=== PATIENT | male | born 1970 | race Caucasian/White ===

== ENCOUNTER 2017-01-23 13:39 | Emergency (ER) | payer SELFPAY ==
[2017-01-23 16:09] LABS: BASOPHIL % 0.3 % (0-2); PLATELET COUNT 220 x10^3mcL (130-400); RED CELL DISTRIBUTION WIDTH 14.3 % (11.5-14.5)
[2017-01-23 16:21] LABS: ALBUMIN 3.6 g/dL (3.4-5.0); ALKALINE PHOSPHATASE 76 U/L (46-116); ALT/SGPT 19 U/L (16-63); AMYLASE 29 U/L (25-115); AST/SGOT 16 U/L (15-37); BILIRUBIN TOTAL 0.5 mg/dL (0.20-1.00); CALCIUM 8.4 mg/dL (8.5-10.1); CARBON DIOXIDE 25.8 mmol/L (21-32); CHLORIDE SERUM 102 mmol/L (98-107); CHOLESTEROL 144 mg/dL (<200); GFR1 > 60 mL/min; GLUCOSE SERUM 113 mg/dL (74-106); HDL CHOLESTEROL 59 mg/dL (40-60); LIPASE 90 IU/L (73-393); POTASSIUM SERUM 3.5 mmol/L (3.5-5.1); SODIUM SERUM 135 mmol/L (136-145); T4(THYROXINE) 8.4 ug/dL (4.7-13.3); TOTAL PROTEIN, SERUM 6.9 g/dL (6.4-8.2)
[2017-01-23 16:54] LABS: microscopic required? NO
[2017-01-23 16:59] LABS: UA SPECIFIC GRAVITY 1.025 (1.005-1.035); urine erythrocyte NEGATIVE (NEGATIVE)
[2017-01-23 17:08] LABS: AMPHETAMINE QUAL UR POSITIVE (NEG <=1000)
[2017-01-23 19:43] VITALS: BP 127/80
== END 2017-01-23 19:43 | disposition home or self-care (01) ==
LOC: ED 13:39
PROVIDERS: Emergency Medicine
DX: S43.005A Unspecified dislocation of left shoulder joint, initial encounter (principal); W17.89XA Other fall from one level to another, initial encounter; F17.210 Nicotine dependence, cigarettes, uncomplicated; E66.01 Morbid (severe) obesity due to excess calories; I10 Essential (primary) hypertension; Z71.6 Tobacco abuse counseling; J45.909 Unspecified asthma, uncomplicated; Y93.89 Activity, other specified; Y99.8 Other external cause status; Y92.89 Other specified places as the place of occurrence of the external cause
CPT/HCPCS: 83880; 99406; G0480; J1940; J3010; J3490; J7050; Q0092

== ENCOUNTER 2018-06-19 09:19 | Emergency (ER) | payer OTHER ==
[~2018-06-19] VITALS: Ht 167.6 cm; Wt 112.9 kg
[2018-06-19 09:25] VITALS: Ht 167.6 cm; Wt 112.9 kg
[2018-06-19 11:39] VITALS: BP 158/103
== END 2018-06-19 11:50 | disposition home or self-care (01) ==
LOC: ED 09:19
DX: S39.012A Strain of muscle, fascia and tendon of lower back, initial encounter (principal); S46.911A Strain of unspecified muscle, fascia and tendon at shoulder and upper arm level, right arm, initial encounter; S99.921A Unspecified injury of right foot, initial encounter; I10 Essential (primary) hypertension; Z90.89 Acquired absence of other organs; W10.8XXA Fall (on) (from) other stairs and steps, initial encounter; Y93.89 Activity, other specified; Y92.89 Other specified places as the place of occurrence of the external cause; Y99.8 Other external cause status
CPT/HCPCS: J1885

== ENCOUNTER 2018-10-27 16:12 | Emergency (ER) | payer OTHER ==
[~2018-10-27] VITALS: Ht 170.2 cm; Wt 111.1 kg
[2018-10-27 16:19] VITALS: Ht 170.2 cm; Wt 111.1 kg
[2018-10-27 17:23] LABS: BASOPHIL % 0.3 % (0-2); CALCIUM 8.9 mg/dL (8.5-10.1); CARBON DIOXIDE 31.3 mmol/L (21-32); CHLORIDE SERUM 104 mmol/L (98-107); CREATININE SERUM 0.9 mg/dL (0.7-1.3); GFR1 > 60 mL/min; GLUCOSE SERUM 77 mg/dL (74-106); PLATELET COUNT 234 x10^3mcL (130-400); POTASSIUM SERUM 4.3 mmol/L (3.5-5.1); RED CELL DISTRIBUTION WIDTH 13.9 % (11.5-14.5); SODIUM SERUM 142 mmol/L (136-145)
[2018-10-27 17:32] LABS: ALBUMIN 3.4 g/dL (3.4-5.0); ALKALINE PHOSPHATASE 73 U/L (46-116); ALT/SGPT 34 U/L (16-63); AST/SGOT 19 U/L (15-37); BILIRUBIN TOTAL 0.18 mg/dL (0.20-1.00); TOTAL PROTEIN, SERUM 7.2 g/dL (6.4-8.2)
[2018-10-27 18:03] VITALS: BP 167/68
== END 2018-10-27 18:03 | disposition home or self-care (01) ==
LOC: ED 16:12
PROVIDERS: Emergency Medicine
DX: R07.89 Other chest pain (principal); R42 Dizziness and giddiness; R53.1 Weakness; F17.210 Nicotine dependence, cigarettes, uncomplicated; J45.909 Unspecified asthma, uncomplicated; I10 Essential (primary) hypertension; Z90.89 Acquired absence of other organs
CPT/HCPCS: 36415; Q0092

== ENCOUNTER 2018-11-21 14:41 | Emergency (ER) | payer OTHER ==
[~2018-11-21] VITALS: Ht 170.2 cm; Wt 112.9 kg
[2018-11-21 14:59] VITALS: Ht 170.2 cm; Wt 112.9 kg
[2018-11-21 16:37] LABS: BASOPHIL % 0.4 % (0-2); PLATELET COUNT 270 x10^3mcL (130-400); RED CELL DISTRIBUTION WIDTH 14.7 % (11.5-14.5)
[2018-11-21 16:48] LABS: CALCIUM 9.1 mg/dL (8.5-10.1); CARBON DIOXIDE 30.8 mmol/L (21-32); CHLORIDE SERUM 105 mmol/L (98-107); GFR1 > 60 mL/min; GLUCOSE SERUM 88 mg/dL (74-106); POTASSIUM SERUM 4.1 mmol/L (3.5-5.1); SODIUM SERUM 142 mmol/L (136-145)
[2018-11-21 16:52] LABS: ALBUMIN 3.6 g/dL (3.4-5.0); ALKALINE PHOSPHATASE 76 U/L (46-116); ALT/SGPT 29 U/L (16-63); AST/SGOT 19 U/L (15-37); BILIRUBIN TOTAL 0.3 mg/dL (0.20-1.00); TOTAL PROTEIN, SERUM 7.8 g/dL (6.4-8.2)
[2018-11-21 18:10] VITALS: BP 135/87
== END 2018-11-21 18:10 | disposition home or self-care (01) ==
LOC: ED 14:41
PROVIDERS: Emergency Medicine
DX: S97.101A Crushing injury of unspecified right toe(s), initial encounter (principal); R07.89 Other chest pain; R06.00 Dyspnea, unspecified; X58.XXXA Exposure to other specified factors, initial encounter; Y93.89 Activity, other specified; Y92.89 Other specified places as the place of occurrence of the external cause; Y99.8 Other external cause status
CPT/HCPCS: 36415; 83880; 85378; Q0092

== ENCOUNTER 2019-04-12 16:40 | Inpatient (IN) | payer OTHER ==
[~2019-04-12] VITALS: Ht 170.2 cm; Wt 116.1 kg
[2019-04-12 16:47] VITALS: Ht 170.2 cm; Wt 116.1 kg
[2019-04-12 17:32] LABS: BASOPHIL % 0.4 % (0-2); PLATELET COUNT 276 x10^3mcL (130-400); RED CELL DISTRIBUTION WIDTH 14.5 % (11.5-14.5)
--- NOTE | 2019-04-12 17:32 | NUR ---
PT WAS DROPPED OFF TODAY FOR CHEST PAIN SINCE YESTERDAY THAT IS INCREASING GETTING WORSE. PT REPORTING LEFT ARM NUMBNESS AFTER WAKING FROM A NAP YESTERDAY THEN CHEST PAIN ACCROSS THE CHEST STARTED AND PAIN INCREASES WITH INSPIRATION AND MOVEMENT PER PATIENT. PT IS ALERT AND ORIENTED, BREATHING IS UNLABORED AND EVEN AND PT ON FULL CM.
--- NOTE | 2019-04-12 17:34 | NUR ---
PT REPORTING NON-COMPLAINT WITH HTN MEDICATION
[2019-04-12 17:41] LABS: CALCIUM 8.5 mg/dL (8.5-10.1); CARBON DIOXIDE 28.2 mmol/L (21-32); CHLORIDE SERUM 105 mmol/L (98-107); CREATININE SERUM 0.8 mg/dL (0.7-1.3); GFR1 > 60 mL/min; GLUCOSE SERUM 105 mg/dL (74-106); SODIUM SERUM 141 mmol/L (136-145)
--- NOTE | 2019-04-12 17:42 | NUR ---
I EXPLAINED TO PT REGARDING THE NITRO S/L AND TOPICAL I DISCUSSED S/E PT IS CM I WILL MONITOR FOR CP EFFECTIVENESS AFTER GIVING THE NITRO S/L SEE EMAR VITALS FOR VITALS BEFORE DURING AND AFTER THE NITRO.
--- NOTE | 2019-04-12 17:45 | NUR ---
PT A/AX4 SPEAKING IN CLEAR SENTENCES. PT IS SPEAKING IN CLEAR SENTENCES.
--- NOTE | 2019-04-12 17:47 | NUR ---
PT STILL C/O TIGHTNESS B/P AFTER THE SECOND NITRO 0.4 MG S/L IS 137/89 P63 98 SATS WITH O2 2L N/C
[2019-04-12 17:49] LABS: ALBUMIN 3.4 g/dL (3.4-5.0); ALKALINE PHOSPHATASE 84 U/L (46-116); ALT/SGPT 27 U/L (16-63); AST/SGOT 13 U/L (15-37); BILIRUBIN TOTAL 0.2 mg/dL (0.20-1.00); TOTAL PROTEIN, SERUM 7.5 g/dL (6.4-8.2)
[2019-04-12 19:26] LABS: CHOLESTEROL/HDL RATIO 3.4; MAGNESIUM 2.1 mg/dL (1.8-2.4); PHOSPHOROUS 4.1 mg/dL (2.5-4.9)
--- NOTE | 2019-04-12 19:35 | NUR ---
CALLED AND GAVE REPORT TO JF RN, ALL QUESTIONS ADDRESSED AT THIS TIME
[2019-04-12 19:37] LABS: FREE T4 0.94 ng/dL (0.76-1.46); FREE THYROXINE INDEX 3.1 ug/dL (1.4-4.5); T4(THYROXINE) 9.9 ug/dL (4.7-13.3)
[2019-04-12 19:39] LABS: T3 TOTAL 1.01 ng/mL
[2019-04-12 20:13] VITALS: BP 148/99
--- NOTE | 2019-04-12 20:50 | NUR ---
RECIEVED PT IN NO ACUTE DISTRESS. AOX4. TELE #9, SR. BREATHING E/U. C/O CHEST PAIN 02/08, WILL MEDICATE PER EMAR. IV TO LAC. ORIENTED TO ROOM. BED IN LOWEST POSITION, 2 SIDE RAILS UP, CALL LIGHT IN REACH.
[2019-04-13 02:03] LABS: UA SPECIFIC GRAVITY 1.025 (1.005-1.035); microscopic required? YES; urine erythrocyte 3+ (NEGATIVE)
--- NOTE | 2019-04-13 02:07 | NUR ---
RESTING WITH EYES CLOSED. BREATHING E/U. NO ACUTE DISTRESS NOTED. WILL CONTINUE TO MONITOR.
[2019-04-13 02:16] LABS: AMPHETAMINE QUAL UR NONE DETECTED (See below)
[2019-04-13 05:40] VITALS: BP 164/98
--- NOTE | 2019-04-13 06:12 | NUR ---
PT C/O HEARTBURN. MEDICATED WITH ONE TIME PRILOSEC. NO C/O CHEST PAIN AT THIS TIME. NO ACUTE DISTRESS NOTED. WILL ENDORSE TO ONCOMING RN.
[2019-04-13 06:53] LABS: PLATELET COUNT 269 x10^3mcL (130-400)
--- NOTE | 2019-04-13 07:12 | NUR ---
REPORT TAKEN AT THE BEDSIDE, PT AWAKE AND ALERT, WILL CONTINUE TO MONITOR
[2019-04-13 07:26] LABS: CALCIUM 8.7 mg/dL (8.5-10.1); CARBON DIOXIDE 25.2 mmol/L (21-32); CHLORIDE SERUM 101 mmol/L (98-107); CREATININE SERUM 0.9 mg/dL (0.7-1.3); GFR1 > 60 mL/min; GLUCOSE SERUM 166 mg/dL (74-106); POTASSIUM SERUM 4.6 mmol/L (3.5-5.1); SODIUM SERUM 136 mmol/L (136-145)
[2019-04-13 07:31] VITALS: BP 144/94
[2019-04-13 07:36] LABS: BASOPHIL % 0 % (0-2); RED CELL DISTRIBUTION WIDTH 14.7 % (11.5-14.5)
--- NOTE | 2019-04-13 10:33 | NUR ---
PATIENT REPORTS HEADACHE PAIN AT THIS TIME, DENIED N/V, GIVEN TYLENOL PER PRN ORDER WILL CONTINUE TO MONITOR.
[2019-04-13 11:56] VITALS: BP 152/92
--- NOTE | 2019-04-13 14:10 | NUR ---
I WOKE PATIENT TO GIVE 1400 DOSE OF LEVAQUIN PO. PT REPORTED HEADACHE AT THIS TIME, 8 OF 10 PAIN. PAIN HAS BEEN CONSTANT AND NOT HELPED BY PRIOR MEDICATIONS PER PT'S REPORT. PT DENIED DIZZINESS OR N/V AT THIS TIME, ALSO DENIED WEAKNESS OR NUMBNESS IN ARMS OR LEGS. I PAGED DR. CONTEH AND SPOKE TO HIM ON THE PHONE. HE REPORTED HE WILL UPDATE eMAR AND VISIT THE PATIENT THIS AFTERNOON. WILL CONTINUE TO MONITOR.
[2019-04-13 15:48] VITALS: BP 142/71
--- NOTE | 2019-04-13 19:17 | NUR ---
PATIENT TOLERATED TREATMENT WELL DURING THE SHIFT, REPORTED HEADACHE DURING THE SHIFT, MEDICATED PER PRN ORDERS, CONSULTED WITH DR. CONTEH ABOUT HEADACHE REPORTS, HE VISITED THE PATIENT IN THE AFTERNOON TO ASSESS. PATIENT STILL REPORTS MILD HEADACHE AND NAUSEA. DECLINED ZOFRAN MEDICATION HE FEELS THE PAIN MEDICATIONS MADE HIM SICK. GIVEN TUMS PER PRN ORDER. REPORT GIVEN TO ENROLLMENT COUNSELOR NURSE AT THE BEDSIDE, CARE ENDORSED
--- NOTE | 2019-04-13 19:25 | NUR ---
RECIEVED PT IN NO ACUTE DISTRESS. AOX4. MED SURG. DENIES CP AT THIS TIME. C/O HUBBARD, WILL MEDICATE PER EMAR. LUNG SOUNDS WITH MILD WHEEZE BILAT. BREATHING E/U. IV TO LAC. BED IN LOWEST POSITION, 2 SIDE RAILS UP, CALL LIGHT IN REACH.
[2019-04-13 20:14] VITALS: BP 153/83
--- NOTE | 2019-04-14 02:11 | NUR ---
RESTING WITH EYES CLOSED. BREATHING E/U. NO ACUTE DISTRESS NOTED. WILL CONTINUE TO MONITOR.
[2019-04-14 04:52] VITALS: BP 131/83
[2019-04-14 06:16] LABS: PLATELET COUNT 247 x10^3mcL (130-400)
[2019-04-14 06:23] LABS: CALCIUM 8.2 mg/dL (8.5-10.1); CARBON DIOXIDE 26.8 mmol/L (21-32); CHLORIDE SERUM 105 mmol/L (98-107); CREATININE SERUM 0.8 mg/dL (0.7-1.3); GFR1 > 60 mL/min; GLUCOSE SERUM 134 mg/dL (74-106); MAGNESIUM 2.2 mg/dL (1.8-2.4); PHOSPHOROUS 3.9 mg/dL (2.5-4.9); POTASSIUM SERUM 4.8 mmol/L (3.5-5.1); SODIUM SERUM 140 mmol/L (136-145)
--- NOTE | 2019-04-14 06:48 | NUR ---
DENIES CP OVERNIGHT. NO ACUTE DISTRESS NOTED. WILL ENDORSE TO ONCOMING RN.
--- NOTE | 2019-04-14 07:11 | NUR ---
REPORT TAKEN FROM SERVICE DISPATCHER NURSE AT THE BEDSIDE, PT RESITNG AT THIS TIME, WILL CONTINUE TO MONITOR.
[2019-04-14 07:48] LABS: RED CELL DISTRIBUTION WIDTH 14.6 % (11.5-14.5)
--- NOTE | 2019-04-14 07:48 | NUR ---
LAB CALLED TO REPORT CRITICAL WBC VALUE OF 21.8. NO RESIDENT HAS BEEN ASSINGED TO THIS PATIENT'S CASE THIS MORNING, ONCE ASSINGMENT LIST IS BROUGHT TO NURSES STATION I WILL NOTIFY THE PROVIDER.
[2019-04-14 09:57] VITALS: BP 143/90
[2019-04-14 10:41] LABS: ATYPICAL LYMPH 1 %; BAND NEUTROPHIL 0 % (0-10); BASOPHIL 0 % (0-2); PLATELET MORPHOLOGY PLATELETS DECREASED; SEGMENTED NEUTROPHILS 95 % (37-75)
[2019-04-14 10:42] LABS: rbc morphology (normal/abnorm) ABNORMAL (NORMAL)
[2019-04-14] MEDS ORDERED: LEV500 PO (14:01)
[2019-04-14] MEDS ORDERED: FLO4 PO (14:11)
[2019-04-14] MEDS ORDERED: LIPI10 PO (14:12)
[2019-04-14] MEDS ORDERED: ZES5 PO (14:12)
[2019-04-14 14:32] VITALS: BP 144/89
--- NOTE | 2019-04-14 14:58 | NUR ---
PT SIGNED DISCHARGE PAPERWORK, IV DC'D FROM LEFT AC WITH CATH INTACT, SITE WRAPPED WITH COBAN AND COVERED WITH GAUZE. PATIENT REPORTED THAT HE NEEDED PAIN MEDICATIONS, [facility], I PAGED DR. ELLIOTT'S TEAM WHO REPORTED THEY WILL COME AND SEE THE PATIENT SOON THEY CAN. PT ADVISED TO WAIT IN ROOM FOR DOCTOR PRIOR TO LEAVING THE HOSPITAL, PT AGREED.
--- NOTE | 2019-04-14 15:56 | NUR ---
PATIENT GIVEN PRESCRIPTION FOR PAIN BY THE DOCTOR, TAKEN DOWN TO EXIT VIA WHEELCHAIR BY TENZIN
== END 2019-04-14 15:56 | disposition home or self-care (01) | DRG 203 ==
LOC: ED 16:40 → DU 18:59 → MU 04-13 17:24
PROVIDERS: Emergency Medicine; ADMIT Internal Medicine
DX: R07.89 Other chest pain (principal); E66.2 Morbid (severe) obesity with alveolar hypoventilation; F41.9 Anxiety disorder, unspecified; G62.9 Polyneuropathy, unspecified; J44.1 Chronic obstructive pulmonary disease with (acute) exacerbation; Z68.41 Body mass index [BMI] 40.0-44.9, adult; K21.9 Gastro-esophageal reflux disease without esophagitis; I10 Essential (primary) hypertension; R73.03 Prediabetes; M06.00 Rheumatoid arthritis without rheumatoid factor, unspecified site; N41.9 Inflammatory disease of prostate, unspecified; R31.9 Hematuria, unspecified; F17.210 Nicotine dependence, cigarettes, uncomplicated; Z90.49 Acquired absence of other specified parts of digestive tract; Z71.3 Dietary counseling and surveillance; Z71.6 Tobacco abuse counseling; Z91.19 Patient's noncompliance with other medical treatment and regimen; N20.0 Calculus of kidney
CPT/HCPCS: 83880; 84439; G0378; J1644; J1885; J2270; J2405; J2920; J2930; J7620; Q0092

== ENCOUNTER 2019-05-02 13:48 | Inpatient (IN) | payer OTHER ==
[~2019-05-02] VITALS: Ht 170.2 cm; Wt 113.4 kg
[~2019-05-02 13:48] MED LIST: FLO4 PO; LEV500 PO; LIPI10 PO; ZES5 PO
[2019-05-02 14:16] LABS: BASOPHIL % 0.4 % (0-2); PLATELET COUNT 234 x10^3mcL (130-400)
[2019-05-02 14:18] LABS: RED CELL DISTRIBUTION WIDTH 15.3 % (11.5-14.5)
[2019-05-02 14:43] LABS: CALCIUM 8.6 mg/dL (8.5-10.1); CARBON DIOXIDE 29.2 mmol/L (21-32); CHLORIDE SERUM 103 mmol/L (98-107); CREATININE SERUM 0.9 mg/dL (0.7-1.3); GFR1 > 60 mL/min; GLUCOSE SERUM 93 mg/dL (74-106); POTASSIUM SERUM 4.3 mmol/L (3.5-5.1); SODIUM SERUM 140 mmol/L (136-145)
[2019-05-02 14:47] LABS: ALBUMIN 3.6 g/dL (3.4-5.0); ALKALINE PHOSPHATASE 79 U/L (46-116); ALT/SGPT 27 U/L (16-63); AST/SGOT 17 U/L (15-37); BILIRUBIN TOTAL 0.26 mg/dL (0.20-1.00); TOTAL PROTEIN, SERUM 7.4 g/dL (6.4-8.2)
[2019-05-02 17:20] LABS: CHOLESTEROL/HDL RATIO 3.2
[2019-05-02 17:45] VITALS: BP 148/96
[2019-05-02 17:48] VITALS: BP 148/96
[2019-05-02 17:53] VITALS: Ht 170.2 cm; Wt 113.4 kg
[2019-05-02 21:10] VITALS: BP 141/90
[2019-05-03 05:36] VITALS: BP 131/86
[2019-05-03 06:42] LABS: BASOPHIL % 0.5 % (0-2); PLATELET COUNT 225 x10^3mcL (130-400)
[2019-05-03 07:04] LABS: CALCIUM 8.5 mg/dL (8.5-10.1); CARBON DIOXIDE 30.2 mmol/L (21-32); CHLORIDE SERUM 106 mmol/L (98-107); CREATININE SERUM 0.9 mg/dL (0.7-1.3); GFR1 > 60 mL/min; GLUCOSE SERUM 101 mg/dL (74-106); MAGNESIUM 1.9 mg/dL (1.8-2.4); PHOSPHOROUS 3.5 mg/dL (2.5-4.9); POTASSIUM SERUM 4.4 mmol/L (3.5-5.1); SODIUM SERUM 141 mmol/L (136-145)
[2019-05-03 09:28] VITALS: BP 135/81
[2019-05-03 13:00] VITALS: BP 124/50
[2019-05-03 17:12] VITALS: BP 113/52
[2019-05-03 18:54] VITALS: BP 120/87
[2019-05-03 19:59] LABS: microscopic required? NO
[2019-05-03 20:16] LABS: UA SPECIFIC GRAVITY 1.015 (1.005-1.035); urine erythrocyte NEGATIVE (NEGATIVE)
[2019-05-03 20:24] LABS: AMPHETAMINE QUAL UR NONE DETECTED (See below)
[2019-05-03 21:06] VITALS: BP 101/65
[2019-05-04 05:37] VITALS: BP 114/77
== END 2019-05-04 06:47 | disposition left against medical advice (07) | DRG 198 ==
LOC: ED 13:48 → DU 16:18
PROVIDERS: ADMIT Internal Medicine
DX: I24.9 Acute ischemic heart disease, unspecified (principal); E78.5 Hyperlipidemia, unspecified; N20.0 Calculus of kidney; M06.9 Rheumatoid arthritis, unspecified; I10 Essential (primary) hypertension; R73.03 Prediabetes; F17.210 Nicotine dependence, cigarettes, uncomplicated; J45.909 Unspecified asthma, uncomplicated; Z68.37 Body mass index [BMI] 37.0-37.9, adult
CPT/HCPCS: 83880; 94150; G0378; J2270; J7620

== ENCOUNTER 2020-02-07 20:00 | Emergency (ER) | payer OTHER ==
[~2020-02-07] VITALS: Ht 167.6 cm; Wt 128.5 kg
[2020-02-07 20:06] VITALS: Ht 167.6 cm; Wt 128.5 kg
[2020-02-07 20:43] LABS: BASOPHIL % 0.3 % (0-2); PLATELET COUNT 251 x10^3mcL (130-400)
[2020-02-07 20:46] LABS: RED CELL DISTRIBUTION WIDTH 15.5 % (11.5-14.5)
[2020-02-07 20:48] LABS: CALCIUM 8.3 mg/dL (8.5-10.1); CARBON DIOXIDE 29.1 mmol/L (21-32); CHLORIDE SERUM 103 mmol/L (98-107); CREATININE SERUM 0.9 mg/dL (0.7-1.3); GFR1 > 60 mL/min; GLUCOSE SERUM 97 mg/dL (74-106); POTASSIUM SERUM 3.7 mmol/L (3.5-5.1); SODIUM SERUM 140 mmol/L (136-145)
[2020-02-07 20:53] LABS: ALBUMIN 3.4 g/dL (3.4-5.0); ALKALINE PHOSPHATASE 78 U/L (46-116); ALT/SGPT 31 U/L (16-63); AST/SGOT 19 U/L (15-37); BILIRUBIN TOTAL 0.2 mg/dL (0.20-1.00); TOTAL PROTEIN, SERUM 7.3 g/dL (6.4-8.2)
[2020-02-07 23:26] VITALS: BP 160/109
== END 2020-02-07 23:26 | disposition home or self-care (01) ==
LOC: ED 20:00
PROVIDERS: Emergency Medicine
DX: R60.0 Localized edema (principal); J45.909 Unspecified asthma, uncomplicated; I10 Essential (primary) hypertension; E11.9 Type 2 diabetes mellitus without complications; M06.9 Rheumatoid arthritis, unspecified; Z98.890 Other specified postprocedural states; Z90.49 Acquired absence of other specified parts of digestive tract
CPT/HCPCS: 36415; 83880